=== PATIENT | male | born 1975 | race Two or more races ===

== ENCOUNTER → 2024-12-13 | Outpatient (CLI) | payer MEDICAID, SELFPAY ==
--- NOTE | 2024-12-13 13:49 | XR_ITS ---
Examination: Knee, left , 3 views Technique: Knee AP, lateral, oblique 3 views Date and time of exam: December 13, thousand 25, 1421 hrs. Indications: Knee pain this month. Findings: Early osteoarthritis medial joint space No fracture or dislocation. Small knee effusion Impression: Early osteoarthritis medial joint space
== END | disposition home or self-care (01) ==
PROVIDERS: PCP Physician Assistant; Referring Provider Internal Medicine; Visit Provider Internal Medicine
DX: M17.12 Unilateral primary osteoarthritis, left knee (principal)
CPT/HCPCS: 73562

== ENCOUNTER → 2025-02-23 | Outpatient (CLI) | payer MEDICAID, SELFPAY ==
--- NOTE | 2025-02-23 09:30 | XR_ITS ---
Exam: MRI knee without contrast, left Date and time of exam: Numerously, 2024, 0958 hours INDICATIONS: Left knee pain beginning 4 months ago Technique: Multiple axial, coronal, and sagittal sections on the knee have been obtained. T2-Weighted sagittal, fat-suppressed images, TR 3,500, TE 62, T2 weighted coronal fat-saturated images, TR 3,500, TE 62 Proton density sagittal sections, TR 1800, TE 31. T-1 weighted coronal images, TR 524, TE 13.0 Findings: Medial meniscus anterior horn intact. Medial meniscus, body meniscocapsular separation truncation inner margin. Posterior horn medial meniscus truncation inner margin, large horizontal linear tears. Lateral meniscus anterior horn is intact Lateral meniscus, body is intact Posterior horn lateral meniscus is intact Anterior cruciate ligament mild sprain Posterior cruciate ligament appears intact. Knee effusion is moderate. Quadriceps and patellar tendons appear intact. There is no evidence of tendinosis. Inflammatory change or fracture of Hoffa's fat pad is not seen. Medial patellar facet demonstrates mild thinning. Lateral patellar facet cartilage demonstrates mild thinning. Trochlear cartilage demonstrates mild thinning. Marrow signal adequate. Medial collateral ligament appears intact. Illiotibial band and fibular collateral ligament are intact. Biceps femoris tendons appear intact. Medial femoral condylar articular cartilage demonstrates severe thinning. Lateral femoral condylar articular cartilage demonstrates moderate thinning. Tibial plateau cartilage demonstrates severe medial thinning. Impression: Complex tears body and posterior horn medial meniscus Meniscocapsular separation body of the medial meniscus Mild sprain anterior cruciate ligament
== END | disposition home or self-care (01) ==
PROVIDERS: PCP Student in an Organized Health Care Education/Training Program; Referring Provider Student in an Organized Health Care Education/Training Program; Visit Provider Student in an Organized Health Care Education/Training Program
DX: S83.242A Other tear of medial meniscus, current injury, left knee, initial encounter (principal); S83.512A Sprain of anterior cruciate ligament of left knee, initial encounter; S83.105A Unspecified dislocation of left knee, initial encounter; X58.XXXA Exposure to other specified factors, initial encounter; G89.29 Other chronic pain
CPT/HCPCS: 73721

== ENCOUNTER 2025-04-04 09:43 | Outpatient (AMB) | payer MEDICAID, SELFPAY ==
--- NOTE | 2025-04-04 09:50 | ORTHONT_ITS ---
Vital signs 04/04/25 10:05 Height 1.73 m Height Method Measured Weight 87.26 kg Weight Measurement Method Standing Scale BMI 29.2 BP 123/78 Blood Pressure Source Automatic Cuff Blood Pressure Location Left Upper Arm Position Sitting Respiration 18 Pulse 78 Pulse Source Monitor Temp 96.6 F L Temp Source Temporal Artery Scan Pulse Oximetry (%) 97 Oxygen Delivery Method Room Air Med/Allergies Allergies & Medications Allergies NKA* Allergy (Uncoded 04/04/25 09:50) Medication Reconciliation atorvastatin 80 mg tablet (Lipitor) 80 mg PO QDAY 04/04/25 [History Confirmed 04/04/25] diclofenac sodium 1 % topical gel (Arthritis Pain (diclofenac)) 2 g topical QID 04/04/25 [History Confirmed 04/04/25] ergocalciferol (vitamin D2) 1,250 mcg (50,000 unit) capsule 1,250 mcg PO QMONTH 04/04/25 [History Confirmed 04/04/25] icosapent ethyl 1 gram capsule (Vascepa) 2 g PO BID 04/04/25 [History Confirmed 04/04/25] ketorolac 60 mg/2 mL intramuscular solution 30 mg IM Q6H 04/04/25 [History Confirmed 04/04/25] lisinopril 2.5 mg tablet 2.5 mg PO QDAY 04/04/25 [History Confirmed 04/04/25] meloxicam 15 mg tablet 15 mg PO QDAY 04/04/25 [History Confirmed 04/04/25] meloxicam 7.5 mg tablet 7.5 mg PO QDAY #45 tabs 04/04/25 [Rx] metformin 500 mg tablet 500 mg PO QDAY 04/04/25 [History Confirmed 04/04/25] naproxen 500 mg tablet 500 mg PO BID 04/04/25 [History Confirmed 04/04/25] ropinirole 0.5 mg tablet 0.5 mg PO QDAY 04/04/25 [History Confirmed 04/04/25] triamcinolone acetonide 40 mg/mL suspension for injection 20 mg IM QDAY 04/04/25 [History Confirmed 04/04/25] Exam Exam Patient is in no acute distress and is cooperative with the examination today. Breathing is nonlabored. Patient has a normal mood and affect. Bilateral extremities were evaluated and demonstrates sensation intact to light touch. Palpable pedal pulses are present. No significant edema is present. Bilateral hips were examined. The patient has no pain with log roll of the hips. Internal rotation to 30 degrees and external rotation to 30 degrees is painless. Negative FADIR. Right knee was examined today. The right knee is in reasonable alignment. Range of motion from 0-120 degrees. Knee is stable to varus and valgus as well as AP translation with <5mm. Patient has a negative McMurrays. There is no pain with patellofemoral compression and no crepitus noted. The knee is nontender to palpation. Left knee was examined today. The left knee is in varus alignment. Range of motion from 0-115 degrees. Knee is stable to varus and valgus as well as AP translation with <5mm. Patient has a negative McMurrays. There is no pain with patellofemoral compression and no crepitus noted. The knee is tender to palpation medially. X-rays demonstrate minimal arthritis of the left knee Assessment and Plan Problem List (1) Arthritis of left knee: Status: Acute (2) Tear of meniscus of left knee: Status: Acute Plan: ASSESSMENT AND PLAN 1. Left knee pain: The MRI results indicate a meniscal tear, which is common for his age group and typically improves over time. Will try conservative treatment. A steroid injection will be administered today. Continue with diclofenac cream, and oral diclofenac will also be prescribed. An x-ray of the left knee will be ordered. Meloxicam will be prescribed, and authorization for injections will be sought during the next visit. 2. Foot lump: A soft lump was noted on the foot. An x-ray of the foot will be ordered. A referral to a tool chaser will be made for further evaluation. 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 4 ([id number]) [place] Intake Visit Data Collection New Patient or Established: New Patient (never been to [facility]) Reason for Visit:: LEFT KNEE PAIN Seen by Clinical Staff ONLY (RN/MA): No Instrumentation Supervisor Required: No Primary Care Provider: [facility] PCP or OBGYN visit in last 3 months: Yes Date of Last PCP or OBGYN visit: 01/06/25 Hx Now: No Do You Feel Safe at Home: Yes Authorities Contacted: N/A Questionairres Past Medical History Past Medical History Have you ever been diagnosed with any of the following: Cardiology Problems Myocardial Infarction: No Cardiac Arrhythmia: No Atrial Fibrillation: No Angina: No Heart Murmur: No Coronary Artery Disease: No Atherosclerotic Heart Disease: No Peripheral Vascular Disease: No Hypercholesterolemia: No Aneurysm: No Congestive Heart Failure: No Congenital Heart Disease: No Valvular Heart Disease: No Rheumatic Fever: No Cardiomyopathy: No Edema: No Pericarditis: No Cellulitis: No Deep Vein Thrombosis: No Hypertension: No Hypotension: No Varicose Veins: No Respiratory Problems Chronic Obstructive Pulmonary Disease (COPD): No Asthma: No Bronchitis: No Emphysema: No Pneumonia: No Pulmonary Fibrosis: No Tuberculosis: No Pulmonary Embolism: No Pulmonary Edema: No Sleep Apnea: No CPAP Dependent: No Respiratory Aspiration: No Dyspnea: No Orthopnea: No Hx Cough: No Cough: No Wheezing: No Chest Deformities: No Smoking: No Smoking Cessation Counseling: No Smoking Exposure: No Tobacco Use: No Clubbing: No Exposure to Respiratory Irritants: No Intubation: No Stomache/Intestinal Problems Liver Cancer: No Hepatitis: No Cirrhosis: No Pancreatic Cancer: No Pancreatitis: No Celiac Disease: No Gall Bladder Disease: No Gastrointestinal Bleed: No Esophageal Varices: No Longoria's Esophagus: No Colitis: No Ulcerative Colitis: No Diverticulitis: No Diverticulosis: No Ulcer: No Colorectal Cancer: No Irritable Bowel: No Crohn's Disease: No Obstructive Bowel: No Hiatal Hernia: No Hemorrhoids: No Gastroesophageal Reflux Disease: No Polyps: No Obesity: No Genital/Urinary Problems Chronic Kidney Disease: No Renal Disease: No Kidney Stones: No Polycystic Kidney Disease: No Neurogenic Bladder: No Inguinal Hernia: No Dialysis: No Prostate Cancer: No Benign Prostatic Hyperplasia: No Reproductive Problems Breast Cancer: No Fibroids: No Genital Herpes: No Gonorrhea: No Syphilis: No Testicular Cancer: No Musculoskeletal Problems Muscular Dystrophy: No Myasthenia Gravis: No Marfan's Syndrome: No Bone Cancer: No Arthritis: Yes Rheumatoid Arthritis: No Osteoporosis: No Degenerative Disk Disease: No Gout: No Scoliosis: No Carpal Tunnel Syndrome: No Fibromyalgia: No Fractures: No Degenerative Joint Disease: No Osteomyelitis: No Poliovirus: No Head,Eye,Nose,Throat Problems Cataracts: No Glaucoma: No Blind: No Retinal Detachment: No Macular Degeneration: No Chronic Ear Infections: No Deafness: No Eye Prosthesis: No Endocrine Problems Diabetes Mellitus Type 2: Yes Blood Problems Anemia: No Leukemia: No Hemophilia: No Thalassemia: No Sickle Cell Disease: No Clotting Problems: No Psychologic Problems Schizophrenia: No Recreational Drug Use: No Bipolar Disorder: No Depression: No Anxiety: No Behavior Problems: No Self-Mutilation: No Attention Deficit Disorder: No Attention Deficit Hyperactivity Disorder: No Depression: No Post Traumatic Stress Disorder: No Eating Disorder: No Subjective Visit Visit for: new patient and knee (LEFT) Immunization / Flu Flu Vaccine in the Last 12 Months: No Flu Vaccine Exclusion Criteria: Refused by Patient History of Present Illness Chief complaint: LEFT KNEE PAIN Date of injury / onset of symptoms: 8 MONTHS HISTORY OF PRESENT ILLNESS IGeorge, have obtained verbal consent from the patient, to be recorded during this encounter which may include, but not limited to, medical history, examination, treatment plans, and relevant health information.? Patient was informed that recording will be read and reviewed by myself before inclusion in the medical chart. The patient presents today with left knee pain that has been around for about a year. He reports persistent left knee pain, which he attributes to a gradual onset rather than a specific injury. The patient's most recent x-rays were laying down. He has not had injections, has not had physical therapy, and is currently taking naproxen, which is still helping. He has been managing the pain with diclofenac cream and has received cortisone injections in the surrounding muscles, administered by a family member. These interventions have provided some relief. He does not experience any discomfort in the right knee. Additionally, he mentions a palpable lump on his foot, which he describes as soft in consistency. Pain Pain level (0-10): 6 Pain duration: COMES AND GOES Pain location: inside (medial), outside (lateral) and anterior Pain quality: sharp and aching Pain timing: night, increases with activity and stairs Associated signs & symptoms: stiffness Ambulatory data Ambulatory device: none Treatments Number of previous injections: 0 Improvement with previous injections: No Number of Physical Therapy sessions: 0 Improvement with PT: No Improvement with NSAIDS: yes (NAPROXEN) Review of Systems Review of Systems: All systems negative unless otherwise noted in HPI.
[2025-04-04 10:05] VITALS: BP 123/78; PULSE 78; RESP 18; TEMP 35.9; O2SAT 97; BMI 29.2
--- NOTE | 2025-04-04 10:06 | XR_ITS ---
EXAMINATION: Bilateral AP knees single view Left knee PA lateral axial 3 views TECHNIQUE: Bilateral AP knees standing single view Left knee flexion standing PA, standing lateral, axial left knee 3 views total 4 views Date and time: April 04, 2025, 10:20 a.m. INDICATIONS: Left knee pain beginning 1 year ago FINDINGS: Mild osteopenia. Mild narrowing medial joint spaces No knee fractures No left patellar dislocation nor right patellar dislocation IMPRESSION: Mild narrowing medial joint spaces
--- NOTE | 2025-04-04 10:08 | XR_ITS ---
Examination: Foot, left, 3 views Technique: AP, oblique, lateral views foot, 3 views Date and time of exam: April 04, 2025, 1015 hours INDICATIONS: Left foot pain in the metatarsal region 1 year. FINDINGS: Mild narrowing first metatarsophalangeal joint No fractures No periosteal new bone No foreign body IMPRESSION: Mild narrowing first metatarsophalangeal joint
== END 2025-04-04 10:11 | disposition home or self-care (01) ==
LOC: HODSRG 09:43
PROVIDERS: PCP Student in an Organized Health Care Education/Training Program; Referring Provider Student in an Organized Health Care Education/Training Program; Supervising Provider Orthopaedic Surgery Adult Reconstructive Orthopaedic Surgery; Visit Provider Orthopaedic Surgery Adult Reconstructive Orthopaedic Surgery
DX: S83.207A Unspecified tear of unspecified meniscus, current injury, left knee, initial encounter (principal); M17.12 Unilateral primary osteoarthritis, left knee; Z28.21 Immunization not carried out because of patient refusal
CPT/HCPCS: 73564; 73630; 99204; G0463